=== PATIENT | female | born 1960 | race Two or more races ===

== ENCOUNTER → 2017-12-09 | Emergency (ER) | payer OTHER ==
[~2017-12-09] VITALS: Ht 152.4 cm; Wt 90.7 kg
[~2017-12-09] MED LIST: ATIVAN1 MG; BENZONATATE100 MG PO; BYSTOLIC5 MG; BYSTOLIC5 MG PO; CIPRO500 MG PO; GILTUSS TR TAB1 EACH PO; LEVAQUIN750 MG PO; MEDROLPACK PO; NORVASC5 MG; PYRIDIUM DS200 MG PO; SINGULAIR 10MG10 MG PO; Theo-24 PO; XOPENEX CO1.25 MG/0. IH
== END | disposition home or self-care (01) ==
LOC: ER 03:41
DX: J45.901 Unspecified asthma with (acute) exacerbation (principal)

== ENCOUNTER → 2017-12-17 | Emergency (ER) | payer OTHER ==
[~2017-12-17] VITALS: Ht 152.4 cm; Wt 86.2 kg
== END | disposition left against medical advice (07) ==
LOC: ER 17:49
DX: R05 Cough (principal)

== ENCOUNTER 2017-12-19 10:53 | Outpatient (CLI) | payer OTHER | END 2017-12-19 15:23 | disposition home or self-care (01) | LOC: LAB 10:53 | DX: K57.32 Diverticulitis of large intestine without perforation or abscess without bleeding (principal); K92.1 Melena; K64.2 Third degree hemorrhoids ==

== ENCOUNTER 2017-12-26 05:31 | Day surgery (SDC) | payer OTHER | END 2017-12-26 09:40 | disposition home or self-care (01) | LOC: AMB-ENDOS 05:31 | DX: K57.30 Diverticulosis of large intestine without perforation or abscess without bleeding (principal); K64.2 Third degree hemorrhoids ==

== ENCOUNTER → 2018-08-05 | Outpatient (CLI) | payer OTHER | END | disposition home or self-care (01) | LOC: MAMO-SONO 11:54 | DX: Z12.31 Encounter for screening mammogram for malignant neoplasm of breast (principal); N64.4 Mastodynia; Z13.89 Encounter for screening for other disorder ==

== ENCOUNTER 2018-09-11 13:39 | Outpatient (CLI) | payer OTHER | END 2018-09-11 13:44 | disposition home or self-care (01) | LOC: RAD 13:39 | DX: M51.9 Unspecified thoracic, thoracolumbar and lumbosacral intervertebral disc disorder (principal); M16.9 Osteoarthritis of hip, unspecified ==

== ENCOUNTER → 2018-12-05 | Outpatient (CLI) | payer OTHER | END | disposition home or self-care (01) | LOC: MAMO-SONO 08:15 → SONOGRAMA 08:44 | DX: K76.0 Fatty (change of) liver, not elsewhere classified (principal) ==

== ENCOUNTER 2019-02-27 21:12 | Emergency (ER) | payer OTHER ==
[~2019-02-27] VITALS: Ht 149.9 cm; Wt 92.5 kg
[2019-02-27] MEDS ORDERED: EFFEXOR XR150 MG (21:40)
== END 2019-02-27 22:57 | disposition home or self-care (01) ==
LOC: ER 21:12
DX: J03.80 Acute tonsillitis due to other specified organisms (principal)

== ENCOUNTER 2019-08-16 12:16 | Outpatient (CLI) | payer OTHER ==
[~2019-08-16 12:16] MED LIST changes: +EFFEXOR XR150 MG
== END 2019-08-16 12:28 | disposition home or self-care (01) ==
LOC: MAMO-SONO 12:16
DX: Z12.31 Encounter for screening mammogram for malignant neoplasm of breast (principal); Z87.898 Personal history of other specified conditions; N64.4 Mastodynia

== ENCOUNTER 2020-01-07 13:57 | Outpatient (CLI) | payer OTHER | END 2020-01-07 14:05 | disposition home or self-care (01) | LOC: RAD 13:57 | DX: M25.462 Effusion, left knee (principal); M25.561 Pain in right knee; M25.551 Pain in right hip ==

== ENCOUNTER 2020-07-03 14:40 | Outpatient (CLI) | payer OTHER | END 2020-07-03 14:48 | disposition home or self-care (01) | LOC: SONOGRAMA 14:40 → MAMO-SONO 07-04 15:15 | PROVIDERS: ATTEND General Practice | DX: E03.8 Other specified hypothyroidism (principal) ==

== ENCOUNTER 2020-08-23 06:36 | Outpatient (CLI) | payer OTHER | END 2020-08-23 07:27 | disposition home or self-care (01) | LOC: LAB 06:36 | DX: D50.8 Other iron deficiency anemias (principal); N39.0 Urinary tract infection, site not specified; E78.2 Mixed hyperlipidemia; E87.8 Other disorders of electrolyte and fluid balance, not elsewhere classified; I10 Essential (primary) hypertension; Z12.11 Encounter for screening for malignant neoplasm of colon; E55.9 Vitamin D deficiency, unspecified; E03.8 Other specified hypothyroidism; E11.9 Type 2 diabetes mellitus without complications; R74.01 Elevation of levels of liver transaminase levels; K85.80 Other acute pancreatitis without necrosis or infection ==

== ENCOUNTER 2020-08-23 07:36 | Outpatient (CLI) | payer OTHER | END 2020-08-23 07:44 | disposition home or self-care (01) | LOC: SONOGRAMA 07:36 | PROVIDERS: ATTEND General Practice | DX: D25.2 Subserosal leiomyoma of uterus (principal); K76.0 Fatty (change of) liver, not elsewhere classified; R10.84 Generalized abdominal pain; R10.2 Pelvic and perineal pain ==

== ENCOUNTER 2020-11-21 13:08 | Outpatient (CLI) | payer OTHER | END 2020-11-21 13:16 | disposition home or self-care (01) | LOC: MAMO-SONO 13:08 | PROVIDERS: ATTEND Obstetrics & Gynecology Obstetrics | DX: N64.4 Mastodynia (principal) ==

== ENCOUNTER 2021-01-08 13:18 | Outpatient (CLI) | payer OTHER | END 2021-01-08 13:24 | disposition home or self-care (01) | LOC: RAD 13:18 | PROVIDERS: ATTEND Internal Medicine Cardiovascular Disease | DX: I10 Essential (primary) hypertension (principal); I25.118 Atherosclerotic heart disease of native coronary artery with other forms of angina pectoris; R73.02 Impaired glucose tolerance (oral) ==

== ENCOUNTER → 2021-04-27 14:11 | Outpatient (CLI) | payer OTHER | END | disposition home or self-care (01) | LOC: RAD 14:11 | DX: S60.552A Superficial foreign body of left hand, initial encounter (principal); M79.645 Pain in left finger(s) ==

== ENCOUNTER → 2021-05-16 08:00 | Outpatient (CLI) | payer OTHER | END | disposition home or self-care (01) | LOC: LAB 08:00 → ADM 15:30 → AMB-ENDOS 05-18 15:30 → EDSTATUS 05-18 15:30 | PROVIDERS: ATTEND Colon & Rectal Surgery | DX: K57.32 Diverticulitis of large intestine without perforation or abscess without bleeding (principal); Z03.818 Encounter for observation for suspected exposure to other biological agents ruled out; Z20.828 Contact with and (suspected) exposure to other viral communicable diseases; K92.1 Melena; K64.2 Third degree hemorrhoids ==

== ENCOUNTER 2021-07-12 08:00 | Outpatient (CLI) | payer OTHER | END 2021-07-12 08:20 | disposition home or self-care (01) | LOC: PPH VACUNA 08:00 | PROVIDERS: ATTEND Emergency Medicine Pediatric Emergency Medicine | DX: Z23 Encounter for immunization (principal) ==

== ENCOUNTER 2022-02-18 12:15 | Outpatient (CLI) | payer OTHER | END 2022-02-18 12:21 | disposition home or self-care (01) | LOC: RAD 12:15 | PROVIDERS: ATTEND General Practice | DX: M79.671 Pain in right foot (principal); L89.622 Pressure ulcer of left heel, stage 2; M25.529 Pain in unspecified elbow ==

== ENCOUNTER 2022-03-23 11:05 | Outpatient (CLI) | payer OTHER | END 2022-03-23 11:12 | disposition home or self-care (01) | LOC: RAD 11:05 | PROVIDERS: ATTEND General Practice | DX: M79.672 Pain in left foot (principal) ==

== ENCOUNTER 2023-02-17 09:14 | Outpatient (CLI) | payer OTHER | END 2023-02-17 09:19 | disposition home or self-care (01) | LOC: SONOGRAMA 09:14 | PROVIDERS: ATTEND Podiatrist Foot Surgery | DX: M72.2 Plantar fascial fibromatosis (principal) ==

== ENCOUNTER 2023-05-15 14:29 | Emergency (ER) | payer OTHER ==
[~2023-05-15] VITALS: Ht 149.9 cm; Wt 81.6 kg
[2023-05-15] MEDS ORDERED: BISOPROLOL FUMAR5 GM (15:20)
[2023-05-15] MEDS ORDERED: COZAAR25 MG PO (15:20)
[2023-05-15] MEDS ORDERED: CHILDREN'S ASPI81 MG (15:21)
[2023-05-15] MEDS ORDERED: [UNRECOGNIZED DRUG - OTHER] (15:21)
[2023-05-15] MEDS ORDERED: ONDANSETRON ODT8 MG PO (18:51)
[2023-05-15] MEDS ORDERED: BACTRIM DS TAB1 EACH PO (18:51)
[2023-05-15] MEDS ORDERED: PEPCID AC20 MG PO (18:51)
== END 2023-05-15 19:02 | disposition home or self-care (01) ==
LOC: ER 14:29
PROVIDERS: General Practice
DX: N39.0 Urinary tract infection, site not specified (principal); R11.10 Vomiting, unspecified; R53.1 Weakness; Z88.8 Allergy status to other drugs, medicaments and biological substances

== ENCOUNTER → 2023-08-18 | Outpatient (CLI) | payer OTHER ==
[~2023-08-18] MED LIST changes: +BACTRIM DS TAB1 EACH PO; +BISOPROLOL FUMAR5 GM; +CHILDREN'S ASPI81 MG; +COZAAR25 MG PO; +ONDANSETRON ODT8 MG PO; +PEPCID AC20 MG PO; +[UNRECOGNIZED DRUG - OTHER]
== END | disposition home or self-care (01) ==
LOC: SONOGRAMA 07:28
DX: K76.0 Fatty (change of) liver, not elsewhere classified (principal)

== ENCOUNTER 2023-09-23 13:01 | Outpatient (CLI) | payer OTHER | END 2023-09-23 13:09 | disposition home or self-care (01) | LOC: MAMO-SONO 13:01 | PROVIDERS: ATTEND General Practice | DX: M54.2 Cervicalgia (principal); N64.4 Mastodynia ==

== ENCOUNTER 2023-09-26 08:52 | Emergency (ER) | payer OTHER ==
[~2023-09-26] VITALS: Ht 152.4 cm; Wt 82.6 kg
[2023-09-26 11:18] LABS: HEMOGLOBIN 13.7 g/dL (12.0-15.00); MEAN CELL VOLUME 82.5 fL (80.00-100.00); MEAN CORPUSCULAR HEMOGLOBIN 28.1 pg (27.00-32.0); MEAN CORPUSCULAR HGB CONC 34.1 g/dl (32.0-36.0); PLATELET COUNT 284 K/uL (150-450); RED BLOOD COUNT 4.85 M/uL (4.00-6.00); RED CELL DISTRIBUTION WIDTH 13.8 % (11.5-14.5)
== END 2023-09-26 13:09 | disposition home or self-care (01) ==
LOC: ER 08:53
PROVIDERS: General Practice
DX: U07.1 COVID-19 (principal); R05.9 Cough, unspecified; R53.81 Other malaise; I10 Essential (primary) hypertension; Z88.8 Allergy status to other drugs, medicaments and biological substances

== ENCOUNTER 2023-11-27 10:11 | Outpatient (CLI) | payer OTHER | END 2023-11-27 10:16 | disposition home or self-care (01) | LOC: SONOGRAMA 10:11 | PROVIDERS: ATTEND Obstetrics & Gynecology | DX: N94.89 Other specified conditions associated with female genital organs and menstrual cycle (principal) ==

== ENCOUNTER 2024-04-30 14:40 | Emergency (ER) | payer OTHER ==
[~2024-04-30] VITALS: Ht 149.9 cm; Wt 86.2 kg
[~2024-04-30 14:40] MED LIST changes: +DICLOFENAC POTA50 MG PO; +VOLTAREN ARTHRI20 GM TOP
[2024-04-30 16:59] LABS: HEMOGLOBIN 14.5 g/dL (12.0-15.00); MEAN CELL VOLUME 82.8 fL (80.00-100.00); MEAN CORPUSCULAR HEMOGLOBIN 27.9 pg (27.00-32.0); MEAN CORPUSCULAR HGB CONC 33.7 g/dl (32.0-36.0); PLATELET COUNT 356 K/uL (150-450); RED BLOOD COUNT 5.19 M/uL (4.00-6.00); RED CELL DISTRIBUTION WIDTH 13.8 % (11.5-14.5)
[2024-04-30] MEDS ORDERED: CEFTRIAXONE SODIUM 1,000 MG VIAL IM STA (18:09)
[2024-04-30] MEDS ORDERED: CEFTRIAXONE SODIUM 1,000 MG VIAL ONE (18:18)
== END 2024-04-30 18:45 | disposition home or self-care (01) ==
LOC: ER 14:42
PROVIDERS: General Practice
DX: R53.81 Other malaise (principal); J06.9 Acute upper respiratory infection, unspecified; Z20.822 Contact with and (suspected) exposure to COVID-19; Z88.8 Allergy status to other drugs, medicaments and biological substances

== ENCOUNTER 2024-05-03 10:08 | Outpatient (CLI) | payer OTHER | END 2024-05-03 10:14 | disposition home or self-care (01) | LOC: RAD 10:08 | PROVIDERS: ATTEND Physical Medicine & Rehabilitation | DX: M25.552 Pain in left hip (principal) ==

== ENCOUNTER 2024-10-03 16:21 | Emergency (ER) | payer OTHER ==
[~2024-10-03] VITALS: Ht 152.4 cm; Wt 90.7 kg
[2024-10-03] MEDS ORDERED: VENLAFAXINE HCL75 M1 PO (16:28)
[2024-10-03] MEDS ORDERED: BISOPROLOL-HCT1 EAC1 PO (16:29)
[2024-10-03] MEDS ORDERED: LOSARTAN POTASS50 MG PO (16:29)
[2024-10-03] MEDS ORDERED: LORAZEPAM0.5 MG PO (16:29)
[2024-10-03] MEDS ORDERED: LORazepam 2 MG/ML VIAL IM ONE (18:30)
[2024-10-03] MEDS ORDERED: LORazepam 2 MG/ML DISP.SYRIN ONE (18:40)
== END 2024-10-03 18:51 | disposition home or self-care (01) ==
LOC: ER 16:21
DX: F41.9 Anxiety disorder, unspecified (principal); M79.7 Fibromyalgia; Z88.8 Allergy status to other drugs, medicaments and biological substances

== ENCOUNTER 2024-12-10 14:27 | Emergency (ER) | payer OTHER ==
[~2024-12-10] VITALS: Ht 152.4 cm; Wt 90.7 kg
[~2024-12-10 14:27] MED LIST changes: +BISOPROLOL-HCT1 EAC1 PO; +LORAZEPAM0.5 MG PO; +LOSARTAN POTASS50 MG PO; +VENLAFAXINE HCL75 M1 PO
[2024-12-10] MEDS ORDERED: KETOROLAC TROMETHAMINE 30 MG VIAL IV ONE (16:15)
[2024-12-10] MEDS ORDERED: ONDANSETRON HCL 2 MG/ML VIAL IV ONE (16:15)
[2024-12-10] MEDS ORDERED: FAMOTIDINE/PF 20 MG/2 ML VIAL IV ONE (16:15)
[2024-12-10] MEDS ORDERED: 0.9 % SODIUM CHLORIDE 500 ML IV ONE (16:15)
[2024-12-10 16:52] LABS: HEMATOCRIT 41.5 % (36.0-45.00); HEMOGLOBIN 14.1 g/dL (12.0-15.00); MEAN CELL VOLUME 82.1 fL (80.00-100.00); MEAN CORPUSCULAR HEMOGLOBIN 27.9 pg (27.00-32.0); PLATELET COUNT 336 K/uL (150-450); RED BLOOD COUNT 5.05 M/uL (4.00-6.00); RED CELL DISTRIBUTION WIDTH 13.7 % (11.5-14.5)
[2024-12-10 17:09] LABS: URINE APPEARANCE Clear; URINE BILIRRUBIN Negative (NEGATIVE); URINE BLOOD Negative; URINE COLOR Yellow; URINE GLUCOSE Negative (NEGATIVE); URINE KETONE Negative (NEGATIVE); URINE LEUKOCYTE Negative; URINE NITRATE Negative; URINE PROTEIN Negative (NEGATIVE); URINE UROBILINOGEN 0.2 E.U./dl
[2024-12-10 17:12] LABS: ALBUMIN 3.6 gm/dL (3.4-5.0); POTASSIUM 4.57 mEq/L (3.5-5.1)
[2024-12-10 17:13] LABS: URINE EPITHELIAL CELLS 20.8 uL (0.0-38.8)
[2024-12-10] MEDS ORDERED: KETOROLAC TROMETHAMINE 30 MG VIAL ONE (17:15)
[2024-12-10] MEDS ORDERED: FAMOTIDINE/PF 20 MG/2 ML VIAL ONE (17:15)
[2024-12-10] MEDS ORDERED: ONDANSETRON HCL 2 MG/ML VIAL ONE (17:15)
[2024-12-10 17:16] LABS: BILIRUBIN TOTAL 0.25 mg/dL (0.3-1.2); CREATININE SERUM 0.77 mg/dL (0.55-1.02); TOTAL PROTEIN 7.6 gm/dL (6.4-8.2)
== END 2024-12-10 21:13 | disposition home or self-care (01) ==
LOC: ER 14:28
PROVIDERS: General Practice
DX: R10.32 Left lower quadrant pain (principal); E10.A Type 1 diabetes mellitus, presymptomatic; I10 Essential (primary) hypertension; Z88.8 Allergy status to other drugs, medicaments and biological substances

== ENCOUNTER 2024-12-16 10:11 | Outpatient (CLI) | payer OTHER | END 2024-12-16 10:24 | disposition home or self-care (01) | LOC: MAMO-SONO 10:11 | PROVIDERS: ATTEND Internal Medicine Rheumatology | DX: M50.80 Other cervical disc disorders, unspecified cervical region (principal); M51.9 Unspecified thoracic, thoracolumbar and lumbosacral intervertebral disc disorder; M16.50 Unilateral post-traumatic osteoarthritis, unspecified hip; E04.2 Nontoxic multinodular goiter; N64.4 Mastodynia ==

== ENCOUNTER → 2024-12-16 10:45 | Outpatient (CLI) | payer OTHER | END | disposition home or self-care (01) | LOC: NUCLEAR 10:45 | PROVIDERS: ATTEND Internal Medicine Rheumatology | DX: M81.0 Age-related osteoporosis without current pathological fracture (principal) ==

== ENCOUNTER 2025-02-23 21:29 | Emergency (ER) | payer OTHER ==
[~2025-02-23] VITALS: Ht 149.9 cm; Wt 90.7 kg
[2025-02-23 21:52] VITALS: BP 142/80; O2SAT 97
[2025-02-23] MEDS ORDERED: METHYLPREDNISOLONE SOD SUCC 125 MG VIAL IV STA (21:59)
[2025-02-23] MEDS ORDERED: LEVALBUTEROL HCL 1.25 MG/3 ML SOLUTION IH STA (22:00)
[2025-02-23] MEDS ORDERED: IPRATROPIUM BROMIDE 0.5 MG/2.5 ML AMPUL.NEB IH STA (22:00)
[2025-02-23] MEDS ORDERED: LEVALBUTEROL HCL 1.25 MG/3 ML SOLUTION IH ONE (22:02)
[2025-02-23] MEDS ORDERED: IPRATROPIUM BROMIDE 0.5 MG/2.5 ML AMPUL.NEB IH ONE (22:02)
[2025-02-23] MEDS ORDERED: METHYLPREDNISOLONE SOD SUCC 125 MG VIAL ONE (22:02)
[2025-02-23 22:40] LABS: BASO % 0.4 % (0.1-1.2); EOS # 0.39 (0.04-0.54); EOS % 4.9 % (0.7-7.0); HEMATOCRIT 42.9 % (34.1-44.9); LYMPH # 2.55 (1.18-3.74); LYMPH % 32.4 % (19.3-53.1); MEAN CORPUSCULAR HEMOGLOBIN 26.9 pg (25.6-32.2); MONO # 0.77 (0.24-0.82); MONO % 9.8 % (4.7-12.5); NEUT # 4.11 (1.56-6.13); NEUT % 52.1 % (34.0-71.1); PLATELET COUNT 275 K/uL (163-369); RED BLOOD COUNT 5.21 M/uL (3.93-5.22); RED CELL DISTRIBUTION WIDTH 13.2 % (11.6-14.4)
[2025-02-23 22:59] LABS: ALBUMIN 3.6 gm/dL (3.4-5.0); BILIRUBIN TOTAL 0.3 mg/dL (0.3-1.2); CALCIUM 9.9 mg/dL (8.5-10.1); CREATININE SERUM 1.14 mg/dL (0.55-1.02); GFR 47.69; GLOBULINA 4.1 G/DL (2.4-3.5); POTASSIUM 4.69 mEq/L (3.5-5.1); TOTAL PROTEIN 7.7 gm/dL (6.4-8.2)
[2025-02-23] MEDS ORDERED: CEFTRIAXONE SODIUM 1,000 MG VIAL IM STA (23:04)
[2025-02-23] MEDS ORDERED: KETOROLAC TROMETHAMINE 30 MG VIAL IM STA (23:05)
[2025-02-23] MEDS ORDERED: KETOROLAC TROMETHAMINE 30 MG VIAL ONE (23:06)
[2025-02-23] MEDS ORDERED: CEFTRIAXONE SODIUM 1,000 MG VIAL ONE (23:06)
== END 2025-02-24 00:20 | disposition home or self-care (01) ==
LOC: ER 22:23
PROVIDERS: General Practice
DX: J45.909 Unspecified asthma, uncomplicated (principal); Z88.8 Allergy status to other drugs, medicaments and biological substances

== ENCOUNTER → 2025-03-04 | Emergency (ER) | payer OTHER ==
[~2025-03-04] VITALS: Ht 149.9 cm; Wt 88.0 kg
== END | disposition left against medical advice (07) ==
LOC: ER 19:22
DX: Z53.21 Procedure and treatment not carried out due to patient leaving prior to being seen by health care provider (principal)

== ENCOUNTER 2025-03-05 11:12 | Emergency (ER) | payer OTHER ==
[~2025-03-05] VITALS: Ht 149.9 cm; Wt 88.0 kg
[2025-03-05 12:22] LABS: BASO % 0.2 % (0.1-1.2); EOS # 0.11 (0.04-0.54); EOS % 0.8 % (0.7-7.0); HEMATOCRIT 38.8 % (34.1-44.9); HEMOGLOBIN 12.9 g/dL (11.2-15.7); LYMPH % 19.4 % (19.3-53.1); MEAN CORPUSCULAR HEMOGLOBIN 27.7 pg (25.6-32.2); MONO # 1.15 (0.24-0.82); MONO % 8.6 % (4.7-12.5); NEUT # 9.45 (1.56-6.13); NEUT % 70.3 % (34.0-71.1); PLATELET COUNT 325 K/uL (163-369); RED BLOOD COUNT 4.66 M/uL (3.93-5.22); RED CELL DISTRIBUTION WIDTH 13.2 % (11.6-14.4)
[2025-03-05 12:39] LABS: CALCIUM 9.9 mg/dL (8.5-10.1); CREATININE SERUM 0.9 mg/dL (0.55-1.02); GFR 62.64; POTASSIUM 3.99 mEq/L (3.5-5.1)
[2025-03-05 12:54] LABS: URINE APPEARANCE Clear; URINE BILIRRUBIN Negative (NEGATIVE); URINE BLOOD Negative; URINE COLOR Yellow; URINE GLUCOSE Negative (NEGATIVE); URINE KETONE Negative (NEGATIVE); URINE LEUKOCYTE Small; URINE NITRATE Negative; URINE PROTEIN Negative (NEGATIVE); URINE UROBILINOGEN 0.2 E.U./dl
[2025-03-05 12:58] LABS: URINE BACTERIA 40.3 uL (0.0-1933); URINE EPITHELIAL CELLS 8.2 uL (0.0-38.8); URINE RBC 7.8 uL (0.0-20.8); URINE WBC 124.3 uL (0.0-23.2)
[2025-03-05 13:03] LABS: URINE CAST 0.14 uL (0.0-1.40)
== END 2025-03-05 13:33 | disposition home or self-care (01) ==
LOC: ER 11:12
PROVIDERS: General Practice
DX: N39.0 Urinary tract infection, site not specified (principal); R30.0 Dysuria; I10 Essential (primary) hypertension; Z88.8 Allergy status to other drugs, medicaments and biological substances